=== PATIENT | female | born 1990 | race Caucasian/White ===

== ENCOUNTER 2023-04-03 22:27 | Emergency (ER) | payer BC ==
[~2023-04-03] VITALS: Ht 172.7 cm; Wt 75.0 kg
[2023-04-03 22:28] VITALS: BP 143/97
--- NOTE | 2023-04-03 22:45 | NUR ---
asher([facility] nurse) and param(one safe [facility]) notified.
[2023-04-04] MEDS ORDERED: TINIDAZOLE 500 MG TABLET PO ONE (00:40)
[2023-04-04] MEDS ORDERED: LEVONORGESTREL 1.5MG tablet 1.5 MG TABLET PO ONE (00:40)
[2023-04-04] MEDS ORDERED: CefTRIAXone 500MG IM Kit w/LIDOcaine (for pt below or = to 150kg) IM ONE (00:40)
[2023-04-04] MEDS ORDERED: azithromycin 250mg tablet PO ONE (00:40)
[2023-04-04] MEDS ORDERED: naproxen 500mg tablet PO ONE (02:15)
== END 2023-04-04 02:55 | disposition home or self-care (01) ==
LOC: EEVIPCON 22:28 → ER 22:28
DX: T76.21XA Adult sexual abuse, suspected, initial encounter (principal); R10.30 Lower abdominal pain, unspecified; M54.59 Other low back pain
CPT/HCPCS: 96372; 99284; J0696